=== PATIENT | male | born 1970 | race Native Hawaiian/Other Pacific Islander ===

== ENCOUNTER 2021-09-19 15:43 | Emergency (ER) | payer BC, SELFPAY ==
[2021-09-19 15:57] VITALS: BP 130/71; PULSE 75; RESP 14; TEMP 36.6; O2SAT 97; BMI 26.6
[2021-09-19 16:10] LABS: Glucose, Point-of-Care* 436 mg/dl (60-115)
--- NOTE | 2021-09-19 16:32 | ED_ITS ---
HPI - General Adult General Chief complaint: Dizziness/Vertigo Stated complaint: High Blood Sugar Time Seen by Provider: 09/19/21 16:02 History of Present Illness HPI narrative: This 51-year-old male comes in reporting symptoms of vertigo with associated nausea and vomiting. He woke up with these symptoms this morning and stated that they were worse with movement. He did not take his insulin this morning and presented to clinic where his blood sugar was elevated. Glucometer reading here shows a glucose level of 436. He does not report any headache or neurologic deficit. He does not have any hearing changes. His symptoms are minimal when remaining still. Related Data Home Medications Medication Instructions Recorded Confirmed insulin aspart U-100 100 unit/mL SUBCUT 09/19/21 (3 mL) subcutaneous pen insulin glargine 100 unit/mL (3 unit SUBCUT 09/19/21 mL) subcutaneous pen (Lantus Solostar U-100 Insulin) Previous Rx's Medication Instructions Recorded meclizine 25 mg tablet 25 mg PO QID #20 tab 09/19/21 ondansetron HCl 4 mg tablet 4 mg PO Q6H #20 tab 09/19/21 Allergies Allergy/AdvReac Type Severity Reaction Status Date / Time statins Allergy Uncoded 09/19/21 15:57 Review of Systems Status of ROS: Reports: 10 or more systems reviewed and unremarkable except as noted in History and below Narrative: Constitutional: No fevers, no weight gain or loss. Eyes: No discharge. No vision changes. HENT: No congestion, no sore throat, no ear pain. Cardiovascular: No chest pain, no palpitations. Respiratory: No shortness of breath, no wheezes, no cough. Gastrointestinal: No abdominal pain, no diarrhea. Nausea with some vomiting related to vertigo. Genitourinary: No dysuria, no hematuria. Musculoskeletal: Normal range of motion. Skin: No rashes, no pruritis. Neurological: No weakness, sensory change, speech change. Vertigo symptoms as described above. Endo/Heme/Allergies: No bruising or bleeding. No polydipsia. Pysch: no suicidality, no anxiety, no insomnia. All other systems reviewed and are negative. [facility] Medical History (Updated 09/19/21 @ 17:35 by Hermelindo Cardoso MD) DM (diabetes mellitus), type 2 Surgical History (Updated 09/19/21 @ 16:46 by Radha Shea RN) No significant past surgical history Social History Smoking Status: Never smoker Do you use any of these nicotine containing products: None Second hand tobacco smoke exposure: No How often do you have a drink containing alcohol: never How often do you have six or more drinks on one occasion: Never AUDIT-C Alcohol total score: 0 Non-prescribed substance use: denies use Exam Narrative: Exam Narrative: Constitutional: Well-developed, well-nourished, no acute distress. HEENT: Normocephalic, atraumatic. Neck: Normal range of motion. Nontender. Supple. Heart: Regular. No murmurs. Normal rate. Intact distal pulses. Lungs: Clear to auscultation. No chest discomfort. No wheezes, rhonchi, or rales. Abdomen: Normal bowel sounds. Nontender. No rebound tenderness. Genitalia: Deferred. Back: No midline tenderness. Normal range of motion. Extremities: Normal range of motion. No injury. Skin: Intact. No rash. Warm. No erythema or pallor. Neurologic: No altered sensation. No weakness. Alert and oriented. No nystagmus. Psychiatric: No suicidality. No anxiety or depression. No insomnia. Nursing notes and vitals signs are reviewed. Const: Vital Signs, click to edit/add: Vital Signs - 24 hr 09/19/21 15:57 Temperature 97.8 F Pulse Rate [Right Pulse Oximeter] 75 Respiratory Rate 14 Blood Pressure [Ri ght Upper Arm] 130/71 Pulse Oximetry 97 Course Vital Signs Vital signs: Initial Vital Signs Temperature 97.8 F 09/19/21 15:57 Temperature Source Temporal Artery Scan 09/19/21 15:57 Pulse Rate 75 09/19/21 15:57 Respiratory Rate 14 09/19/21 15:57 Blood Pressure 130/71 09/19/21 15:57 Blood Pressure Mean 90 09/19/21 15:57 Blood Pressure Position Sitting 09/19/21 15:57 Pulse Oximetry 97 09/19/21 15:57 Oxygen Delivery Method 09/19/21 15:57 Vital Signs Temperature 97.8 F 09/19/21 15:57 Pulse Rate 75 09/19/21 15:57 Respiratory Rate 14 09/19/21 15:57 Blood Pressure 130/71 09/19/21 15:57 Pulse Oximetry 97 09/19/21 15:57 Temperature 97.8 F 09/19/21 15:57 Pulse Rate 75 09/19/21 15:57 Respiratory Rate 14 09/19/21 15:57 Blood Pressure 130/71 09/19/21 15:57 Pulse Oximetry 97 09/19/21 15:57 Medical Decision Making MDM Narrative Medical decision making narrative: This patient comes in with symptoms of vertigo with associated nausea and vomiting. These symptoms are minimal or absent when remaining still. He does not have any neurologic deficits. A central process is not likely. More likely this is peripheral vertigo perhaps due to benign positional vertigo. The patient does have elevated blood glucose because he did not take his insulin this morning and perhaps there is some cord is all stress hormone component causing additional hyperglycemia. He received oral doses of meclizine and Zofran to treat his symptoms. This brought significant improvement to his symptoms. He received prescriptions for the same. I advised him to follow-up with his clinic physician if these symptoms are recurrent. He may benefit from a canalith repositioning maneuver. Lab Data Labs: Lab Results 09/19/21 Range/Units 16:05 POC Glucose 436 H* (60-115) mg/dl Discharge Plan Discharge Clinical Impression: Acute vestibular neuronitis Patient Disposition: Home, Self-Care Condition: Improved Instructions: Vertigo (ED) Additional Instructions: Vertigo. Take medication as needed and indicated. Follow up with MD if symptoms are recurrent or return if worsening. Prescriptions: New meclizine 25 mg tablet 25 mg PO QID Qty: 20 0RF ondansetron HCl 4 mg tablet 4 mg PO Q6H Qty: 20 0RF No Action insulin aspart U-100 100 unit/mL (3 mL) insulin pen SUBCUT 0RF Label Comments: ADMINISTER 20 TO 24 UNITS UNDER THE SKIN THREE TIMES DAILY BEFORE MEALS insulin glargine [Lantus Solostar U-100 Insulin] 100 unit/mL (3 mL) insulin pen SUBCUT 0RF Label Comments: TAKE 22 UNITS SUBCUTANEOUSLY AT BEDTIME. ADJUST DIRECTED UP TO 60 UNITS PER DAY. Follow Up/Referrals: Amrik Bland MD [Primary Care Provider] - Stand Alone Forms: [facility] Info Instructions
[2021-09-19] MEDS: ONDANSETRON ODT 4 MG TAB PO (16:41)
[2021-09-19] MEDS: MECLIZINE HCL 25 MG TABLET PO (16:51)
== END 2021-09-19 17:47 | disposition home or self-care (01) ==
PROVIDERS: Emergency Provider Emergency Medicine Emergency Medical Services; PCP Family Medicine
DX: H81.20 Vestibular neuronitis, unspecified ear (principal); R11.2 Nausea with vomiting, unspecified; E11.9 Type 2 diabetes mellitus without complications; Z79.4 Long term (current) use of insulin
CPT/HCPCS: 82947; 99284; A9270